=== PATIENT | male | born 1985 | race African-American/Black ===

== ENCOUNTER 2019-10-05 17:03 | Emergency (ER) | payer SELFPAY ==
[~2019-10-05] VITALS: Ht 177.8 cm; Wt 81.6 kg
[2019-10-05 19:46] VITALS: BP 115/64
== END 2019-10-05 20:06 | disposition home or self-care (01) ==
LOC: ER 17:03
DX: S61.212A Laceration without foreign body of right middle finger without damage to nail, initial encounter (principal); F17.210 Nicotine dependence, cigarettes, uncomplicated; W22.8XXA Striking against or struck by other objects, initial encounter; Y93.89 Activity, other specified; Y99.8 Other external cause status; Y92.89 Other specified places as the place of occurrence of the external cause